=== PATIENT | male | born 1945 | race Caucasian/White ===

== ENCOUNTER 2021-11-23 20:54 | Inpatient (IN) | payer MEDICARE, MEDICAID ==
[~2021-11-23] VITALS: Ht 175.3 cm; Wt 119.0 kg
[~2021-11-23 20:54] MED LIST: ALPR-13 PO; ASPI-611 PO; CARV12.5 PO; DOL10T PO; MONT10TA21 PO; ROSU20TA2 PO; TAMS0.4C32 PO; VENL75CA55 PO; ZES10T PO
[2021-11-23] MEDS ORDERED: temazepam 15mg capsule PO PRN (21:00)
[2021-11-23] MEDS ORDERED: dextrose 5%-normal saline 1,000 ML IV ONE (21:05)
[2021-11-23 21:40] LABS: BASOPHILS % (AUTO) 0.1 % (0-1); EOSINOPHILS % (AUTO) 0 % (0-6); HEMATOCRIT 41.2 % (42.0-52.0); HEMOGLOBIN 13.7 g/dl (14.0-17.9); LYMPHOCYTES # (AUTO) 0.6 X10'3 (1.1-4.8); MEAN CORPUSCULAR HEMOGLOBIN 30.7 PG (27.0-31.0); MEAN CORPUSCULAR HGB CONC 33.2 g/dL (33.0-36.5); MEAN CORPUSCULAR VOLUME 92.6 FL (78-98); MEAN PLATELET VOLUME 9.8 FL (7.4-10.4); MONOCYTES # (AUTO) 0.3 X10'3 (0-0.9); MONOCYTES % (AUTO) 3.5 % (2-12); NEUTROPHILS # (AUTO) 8.4 X10'3 (1.8-7.7); NEUTROPHILS % (AUTO) 90.4 % (42-75); PLATELET COUNT 119 X10'3 (140-440); RED BLOOD COUNT 4.45 X10'6 (4.70-6.10); RED CELL DISTRIBUTION WIDTH 17.8 % (11.5-14.5); WHITE BLOOD COUNT 9.3 X10'3 (4.5-11.0)
[2021-11-23 22:06] LABS: APTT 43 SECONDS (22-32); D-DIMER 3.21 MG/L FEU (0-0.50)
[2021-11-23] MEDS ORDERED: phytonadione inj. 10 MG in normal saline 100ml IV soln 100 ML IV ONE (22:50)
[2021-11-23 23:19] LABS: CLARITY,URINE SLIGHTLY CLOUDY (Clear); COLOR,URINE YELLOW (Yellow); GLUCOSE, URINE NEGATIVE (Neg); KETONES,URINE TRACE mg/dl (Neg); LEUKOCYTE ESTERASE ,URINE NEGATIVE (Neg); NITRITES, URINE NEGATIVE (Neg); OCCULT BLOOD,URINE LARGE (Neg); PH,URINE 5.5 (4.8-8.0); PROTEIN,URINE 30 mg/dl (Neg)
[2021-11-23] MEDS ORDERED: CARV-50 PO (23:19)
[2021-11-23] MEDS ORDERED: AMLO5TAB16 PO (23:19)
[2021-11-23] MEDS ORDERED: POTA10TA PO (23:19)
[2021-11-23] MEDS ORDERED: FURO20TA4 PO (23:19)
[2021-11-23] MEDS ORDERED: MIRT-87 PO (23:19)
[2021-11-23] MEDS ORDERED: SIMV-42 PO (23:19)
[2021-11-23] MEDS ORDERED: FLUT1AER INH (23:19)
[2021-11-23] MEDS ORDERED: OXYB10TA30 PO (23:19)
[2021-11-23 23:20] LABS: UA COLLECTION TYPE CLN CATCH MIDSTREAM
[2021-11-23 23:27] LABS: AMORPHOUS URATES 2+; BACTERIA,URINE FEW /HPF (Neg); SQUAMOUS EPITHELIAL CELL,UR FEW /LPF (FEW); WBC,URINE 0-4 /HPF (0-4)
[2021-11-23] MEDS: normal saline 1000ml 1,000 ML IV SCH (23:45)
[2021-11-23] MEDS ORDERED: magnesium hydroxide 30ml (MOM) UD suspension PO PRN (23:45)
[2021-11-23] MEDS ORDERED: ondansetron/PF 4mg/2ml inj IV PRN (23:45)
[2021-11-23] MEDS ORDERED: bisacodyl 10mg suppository rectal RC PRN (23:45)
[2021-11-23] MEDS ORDERED: acetaminophen 650mg rectal suppository RC PRN (23:45)
[2021-11-23] MEDS ORDERED: morphine 2 MG/ML inj. syringe IV PRN (23:45)
[2021-11-23] MEDS ORDERED: diphenhydrAMINE 50 mg/ml inj IV PRN (23:45)
[2021-11-23] MEDS ORDERED: mag hydrox/Alum hydrox/simeth 30ml oral suspension PO PRN (23:45)
[2021-11-23] MEDS ORDERED: acetaminophen 325mg tablet PO PRN ×2 (23:45)
[2021-11-23] MEDS ORDERED: naloxone 0.4 mg/ml inj IV PRN (23:45)
[2021-11-23] MEDS ORDERED: ondansetron 4mg rapidly disintigrating tab PO PRN (23:45)
[2021-11-23] MEDS ORDERED: diphenhydrAMINE 25mg capsule PO PRN (23:45)
[2021-11-24] VITALS (13 sets, daily range): BP systolic 87–107; BP diastolic 43–65
[2021-11-24 00:14] LABS: ALBUMIN 2.2 G/DL (3.4-5.0); ALKALINE PHOSPHATASE 251 IU/L (46-116); ANION GAP 16 (8-16); BILIRUBIN,TOTAL 4.9 MG/DL (0.1-1.0); BLOOD UREA NITROGEN 65 MG/DL (7-18); CALCIUM 8.3 MG/DL (8.5-10.1); CHLORIDE 110 MMOL/L (99-107); CKMB RELATIVE INDEX 0.8 RATIO (0-2.5); CREATINE KINASE 773 U/L (39-308); GLUCOSE 91 MG/DL (70-104); LIPASE < 50 U/L (73-393); MAGNESIUM 2.6 MG/DL (1.5-2.4); POTASSIUM 3.3 MMOL/L (3.5-5.1); SODIUM 148 MMOL/L (135-145); TOTAL CARBON DIOXIDE 22.3 MMOL/L (24-32); eGFR 31 ML/MIN
[2021-11-24 00:16] LABS: ALANINE AMINOTRANSFERASE 1064 U/L (12-78); ALBUMIN/GLOBULIN RATIO 0.6 (1.1-1.5); ASPARTATE AMINO TRANSFERASE 1255 U/L (10-37); TOTAL PROTEIN 5.7 G/DL (6.4-8.2)
[2021-11-24 00:17] LABS: ETHANOL < 0.010 GM/DL (0.0-0.010)
[2021-11-24] MEDS ORDERED: magnesium 4gm in 100ml NS 100 ML IV PRN ×2 (02:10→11:30)
[2021-11-24] MEDS ORDERED: magnesium Cl slow-release 64mg tablet PO PRN (02:10)
[2021-11-24] MEDS ORDERED: potassium CL 10mEq/100ml bag 100 ML IV PRN ×2 (02:10→11:30)
[2021-11-24] MEDS ORDERED: potassium Cl 20 mEq SR tablet PO PRN ×3 (02:10→11:30)
[2021-11-24] MEDS ORDERED: albumin (Human) 5% 250ml 250 ML IV ONE (02:20)
[2021-11-24] MEDS: normal saline 1000ml 1,000 ML IV SCH ×2 (02:47→13:52)
[2021-11-24] MEDS ORDERED: albuterol 2.5 MG/3 ML nebule NEB SCH (03:00)
[2021-11-24] MEDS: ipratropium/albuterol 3ml nebule NEB SCH ×6 (03:41→23:14)
[2021-11-24] MEDS ORDERED: tuberculin, purif. prot. deriv. 5 units/0.1ml ID ONE (05:00)
[2021-11-24 06:19] LABS: URINE AMPHETAMINE SCREEN NEGATIVE (Neg); URINE BARBITUATE SCREEN NEGATIVE (Neg); URINE BENZODIAZEPINES SCREEN NEGATIVE (Neg); URINE CANNABINOID SCREEN POSITIVE (Neg); URINE COCAINE SCREEN NEGATIVE (Neg); URINE METHADONE SCREEN NEGATIVE (Neg); URINE OPIATE SCREEN NEGATIVE (Neg); URINE PHENCYCLIDINE SCREEN NEGATIVE (Neg)
[2021-11-24] MEDS ORDERED: LIDOcaine 2% 10ml TOPICAL JELLY (Urojet) TP ONE (06:20)
[2021-11-24] MEDS ORDERED: DOPamine 400mg/D5W 250ml 250 ML IV SCH (06:20)
--- NOTE | 2021-11-24 06:29 | NUR ---
Call daughter when pt. gets placed in room
[2021-11-24 06:31] LABS: HIV ANTIBODY 1&2 RAPID NON-REACTIVE (Neg)
--- NOTE | 2021-11-24 07:03 | NUR ---
spoke with residential housekeeper Neelima who confirmed that dopamine can be run temporarily on a PIV but would eventually need a central line which pt does not have. pt informed of this information and states he "would like to think about it" regarding getting a central line. edmd child made aware of possible need for central line and is agreeable if pt agrees. pt bp currently 84/36. pt is aware of his low blood pressure and aware that decision for central line placement is necessary as soon as possible.
--- NOTE | 2021-11-24 07:27 | NUR ---
pt is agreeable to central line placement. pt is not aware of his current ct scan results and believes he has no liver problems or lung problems. per manufacturing supervisor 2nd shift rn, pt was not told of his current results by the ed doctor or admission dr and pt would like to know his results. ct has concerning results and hospitalist joseline paged to inform pt of the current results so pt can make informed decision regarding his care.
[2021-11-24] MEDS: budesonide 0.5mg/2ml UD nebule IH SCH ×2 (07:32→19:04)
[2021-11-24] MEDS ORDERED: levoFLOXACIN-Levaquin 750MG/D5 150 ML IV SCH (08:00)
[2021-11-24] MEDS ORDERED: dextrose 5%-water 1,000 ML IV SCH (08:15)
[2021-11-24 09:20] LABS: BASOPHILS % (AUTO) 0.1 % (0-1); EOSINOPHILS % (AUTO) 0 % (0-6); HEMATOCRIT 39.1 % (42.0-52.0); LYMPHOCYTES # (AUTO) 0.5 X10'3 (1.1-4.8); LYMPHOCYTES % (AUTO) 4.2 % (21-51); MEAN CORPUSCULAR HEMOGLOBIN 30.7 PG (27.0-31.0); MEAN CORPUSCULAR HGB CONC 33.3 g/dL (33.0-36.5); MEAN CORPUSCULAR VOLUME 92.1 FL (78-98); MEAN PLATELET VOLUME 9.3 FL (7.4-10.4); MONOCYTES # (AUTO) 0.3 X10'3 (0-0.9); MONOCYTES % (AUTO) 2.4 % (2-12); NEUTROPHILS % (AUTO) 93.3 % (42-75); PLATELET COUNT 123 X10'3 (140-440); RED BLOOD COUNT 4.24 X10'6 (4.70-6.10); RED CELL DISTRIBUTION WIDTH 18.1 % (11.5-14.5); WHITE BLOOD COUNT 11.8 X10'3 (4.5-11.0)
[2021-11-24 09:36] LABS: OCCULT BLOOD STOOL POSITIVE (Neg)
[2021-11-24 09:36] LABS: ALANINE AMINOTRANSFERASE 909 U/L (12-78); ALBUMIN 2.2 G/DL (3.4-5.0); ALKALINE PHOSPHATASE 240 IU/L (46-116); ANION GAP 18 (8-16); ASPARTATE AMINO TRANSFERASE 818 U/L (10-37); BILIRUBIN,TOTAL 4.6 MG/DL (0.1-1.0); BLOOD UREA NITROGEN 71 MG/DL (7-18); CALCIUM 8.4 MG/DL (8.5-10.1); CHLORIDE 111 MMOL/L (99-107); CREATININE 2.15 MG/DL (0.60-1.10); GLUCOSE 87 MG/DL (70-104); POTASSIUM 3.7 MMOL/L (3.5-5.1); SODIUM 149 MMOL/L (135-145); TOTAL CARBON DIOXIDE 20.1 MMOL/L (24-32); eGFR 30 ML/MIN
[2021-11-24 09:38] LABS: ALBUMIN/GLOBULIN RATIO 0.6 (1.1-1.5); TOTAL PROTEIN 5.8 G/DL (6.4-8.2)
[2021-11-24 09:45] LABS: CREATINE KINASE 523 U/L (39-308); HDL CHOLESTEROL 17 MG/DL (35-60); LDL CHOLESTEROL 89 MG/DL (50-100); MAGNESIUM 2.7 MG/DL (1.5-2.4)
[2021-11-24 09:47] LABS: CHOLESTEROL 153 MG/DL (0-200); PHOSPHORUS 4.5 MG/DL (2.3-4.5); TRIGLYCERIDES 180 MG/DL (20-135)
[2021-11-24] MEDS: K and/or MAG REPLACEMENT MC SCH ×2 (09:48→20:00)
[2021-11-24] MEDS: carVEDilol 12.5mg tablet PO SCH ×2 (09:50→18:42)
[2021-11-24 10:11] LABS: HEMOGLOBIN A1C 6.2 % (4.5-6.2)
[2021-11-24] MEDS: docusate sod 100mg capsule PO SCH ×2 (10:16→21:19)
[2021-11-24] MEDS: pantoprazole 40mg Tablet.DR PO SCH (10:16)
[2021-11-24] MEDS: methylPREDNISolone sod succ 125mg/2ml vial IV SCH ×2 (10:16→21:18)
[2021-11-24] MEDS: oxybutynin 5mg tablet PO SCH ×2 (10:21→21:19)
--- NOTE | 2021-11-24 10:59 | NUR ---
Patient transferred to ICU at this time. Report given to JACKY Oliveira.
[2021-11-24] MEDS ORDERED: albumin (human) 25% 100 ML IV solution IV ONE (11:05)
[2021-11-24] MEDS ORDERED: potassium Cl 20mEq/100mL bag 100 ML IV PRN (11:30)
[2021-11-24] MEDS ORDERED: magnesium 2GM in 50ml NS 50 ML IV PRN (11:30)
[2021-11-24] MEDS ORDERED: potassium Cl 20 mEq/100mL bag IV ONE (11:40)
[2021-11-24] MEDS ORDERED: amiodarone 150mg/dext, iso-os 100 ML IV ONE (12:50)
[2021-11-24] MEDS: amiodarone/D5 360MG/200ML BAG 200 ML IV SCH ×2 (13:07→19:48)
[2021-11-24] MEDS: DOPamine 400mg/D5W 250ml 250 ML IV SCH ×2 (15:02→21:20)
--- NOTE | 2021-11-24 15:38 | NUR ---
Patients daughter called for an update Zully Granados, updated her on her fathers current condition. She informed me that she arrived in town yesterday an that she was currently at the patients house cleaning it up, I reviewed the patients past medical history with her, she informed that he has a history of strokes and is quite forgetful and often times a little confused when he first wakes up. She stated he has had " mini strokes" in the past. Her contact number is [phone]. Patient states that his daughter is best to contact for past medical history as he forgets easily
[2021-11-24 17:04] LABS: BASOPHILS % (AUTO) 0.1 % (0-1); EOSINOPHILS % (AUTO) 0.1 % (0-6); HEMATOCRIT 36.8 % (42.0-52.0); LYMPHOCYTES # (AUTO) 0.4 X10'3 (1.1-4.8); LYMPHOCYTES % (AUTO) 3.1 % (21-51); MEAN CORPUSCULAR HEMOGLOBIN 29.7 PG (27.0-31.0); MEAN CORPUSCULAR HGB CONC 32.6 g/dL (33.0-36.5); MEAN CORPUSCULAR VOLUME 91.2 FL (78-98); MEAN PLATELET VOLUME 9.5 FL (7.4-10.4); MONOCYTES # (AUTO) 0.2 X10'3 (0-0.9); MONOCYTES % (AUTO) 1.7 % (2-12); PLATELET COUNT 120 X10'3 (140-440); RED BLOOD COUNT 4.04 X10'6 (4.70-6.10); RED CELL DISTRIBUTION WIDTH 17.9 % (11.5-14.5); WHITE BLOOD COUNT 11.5 X10'3 (4.5-11.0)
[2021-11-24 17:16] LABS: ALANINE AMINOTRANSFERASE 770 U/L (12-78); ALBUMIN 2.4 G/DL (3.4-5.0); ALKALINE PHOSPHATASE 213 IU/L (46-116); ANION GAP 17 (8-16); ASPARTATE AMINO TRANSFERASE 581 U/L (10-37); BILIRUBIN,TOTAL 4.2 MG/DL (0.1-1.0); BLOOD UREA NITROGEN 69 MG/DL (7-18); BUN/CREATININE RATIO 34.5 (5.4-32.0); CALCIUM 8.3 MG/DL (8.5-10.1); CHLORIDE 111 MMOL/L (99-107); GLUCOSE 122 MG/DL (70-104); MAGNESIUM 3.1 MG/DL (1.5-2.4); POTASSIUM 4.1 MMOL/L (3.5-5.1); SODIUM 148 MMOL/L (135-145); TOTAL CARBON DIOXIDE 20.2 MMOL/L (24-32); eGFR 33 ML/MIN
[2021-11-24 17:19] LABS: ALBUMIN/GLOBULIN RATIO 0.7 (1.1-1.5); PHOSPHORUS 4.3 MG/DL (2.3-4.5); TOTAL PROTEIN 5.7 G/DL (6.4-8.2)
--- NOTE | 2021-11-24 17:23 | NUR ---
Daughter by to see patient, i was in my other patients room, daughter brought by patients wallet and home meds, meds will be sent down to pharmacy and wallet will be sent down to the safe Addendum: 11/24/21 at 1724 by Roxanne Grier RN Charge nurse in room with patient as i was in another room, she updated the daughter and took possession of meds and wallet
[2021-11-24] MEDS ORDERED: phytonadione inj. 10 MG in normal saline 100ml IV soln 100 ML IV ONE (17:40)
--- NOTE | 2021-11-24 17:55 | NUR ---
critical values pt 43.0 inr 4.6 and positive blood cultures drawn on 11/23/21 from r forearm resulted gram neg rods, Dr. Jeffery informed.
--- NOTE | 2021-11-24 18:30 | NUR ---
Patient in room ICU 2039. I have received report from JACKY Oliveira and had the opportunity to ask questions and assume patient care.
--- NOTE | 2021-11-24 18:32 | NUR ---
Problems reprioritized. Patient report given, questions answered & plan of care reviewed with Devi RICO.
[2021-11-24] MEDS: mirtazapine 15mg tablet PO SCH (21:19)
[2021-11-24] MEDS: atorvastatin 10mg tablet PO SCH (21:19)
[2021-11-25] VITALS (23 sets, daily range): BP systolic 87–118; BP diastolic 46–60
[2021-11-25] MEDS: amiodarone/D5 360MG/200ML BAG 200 ML IV SCH ×3 (01:53→20:37)
[2021-11-25] MEDS: ipratropium/albuterol 3ml nebule NEB SCH ×6 (03:10→23:32)
[2021-11-25 03:13] LABS: BASOPHILS % (AUTO) 0.2 % (0-1); EOSINOPHILS % (AUTO) 0 % (0-6); HEMATOCRIT 36.8 % (42.0-52.0); LYMPHOCYTES # (AUTO) 0.3 X10'3 (1.1-4.8); LYMPHOCYTES % (AUTO) 2.3 % (21-51); MEAN CORPUSCULAR HEMOGLOBIN 29.9 PG (27.0-31.0); MEAN CORPUSCULAR HGB CONC 32.6 g/dL (33.0-36.5); MEAN CORPUSCULAR VOLUME 91.6 FL (78-98); MEAN PLATELET VOLUME 9.4 FL (7.4-10.4); MONOCYTES # (AUTO) 0.3 X10'3 (0-0.9); MONOCYTES % (AUTO) 2.3 % (2-12); NEUTROPHILS # (AUTO) 11.7 X10'3 (1.8-7.7); NEUTROPHILS % (AUTO) 95.2 % (42-75); PLATELET COUNT 123 X10'3 (140-440); RED BLOOD COUNT 4.01 X10'6 (4.70-6.10); RED CELL DISTRIBUTION WIDTH 18.3 % (11.5-14.5); WHITE BLOOD COUNT 12.3 X10'3 (4.5-11.0)
[2021-11-25 03:27] LABS: APTT 36 SECONDS (22-32)
[2021-11-25 03:34] LABS: ALANINE AMINOTRANSFERASE 701 U/L (12-78); ALBUMIN 2.3 G/DL (3.4-5.0); ALKALINE PHOSPHATASE 220 IU/L (46-116); ANION GAP 10 (8-16); ASPARTATE AMINO TRANSFERASE 396 U/L (10-37); BILIRUBIN,TOTAL 4.2 MG/DL (0.1-1.0); BLOOD UREA NITROGEN 72 MG/DL (7-18); BUN/CREATININE RATIO 34.3 (5.4-32.0); CALCIUM 8.2 MG/DL (8.5-10.1); CHLORIDE 115 MMOL/L (99-107); GLUCOSE 155 MG/DL (70-104); POTASSIUM 3.9 MMOL/L (3.5-5.1); SODIUM 148 MMOL/L (135-145); eGFR 31 ML/MIN
[2021-11-25 03:51] LABS: ALBUMIN/GLOBULIN RATIO 0.7 (1.1-1.5); TOTAL PROTEIN 5.7 G/DL (6.4-8.2)
[2021-11-25] MEDS: DOPamine 400mg/D5W 250ml 250 ML IV SCH (04:29)
[2021-11-25] MEDS: NORepinephrine 8mg/ 250ml NS 250 ML IV SCH ×2 (05:22→16:07)
[2021-11-25 05:24] LABS: ANISOCYTOSIS 2+; PLATELET ESTIMATE DECREASED; TOTAL CELLS COUNTED 100
[2021-11-25 05:25] LABS: POLYCHROMASIA FEW
[2021-11-25] MEDS: HYDROcodone/acetaminophen 5mg/325mg tablet PO PRN ×2 (06:01→17:01)
--- NOTE | 2021-11-25 06:35 | NUR ---
Problems reprioritized. Patient report given, questions answered & plan of care reviewed with JACKY Samuels.
[2021-11-25] MEDS: methylPREDNISolone sod succ 125mg/2ml vial IV SCH ×2 (07:28→20:37)
[2021-11-25] MEDS: heparin, porcine 5000 units/ml vial SQ SCH ×2 (07:29→20:37)
[2021-11-25] MEDS: budesonide 0.5mg/2ml UD nebule IH SCH ×2 (07:33→19:26)
[2021-11-25] MEDS: carVEDilol 12.5mg tablet PO SCH ×2 (08:00→20:38)
[2021-11-25] MEDS: K and/or MAG REPLACEMENT MC SCH ×2 (08:00→20:38)
--- NOTE | 2021-11-25 08:00 | NUR ---
Patient in room ICU 2039. I have received report from Devi RICO and had the opportunity to ask questions and assume patient care. MD to see pt. Updated on current condition. He will add orders for pt. QT interval reported. Amiodarone decreased to noted rate after discussion with CN and MD.
--- NOTE | 2021-11-25 08:30 | NUR ---
MD Visit Critical care MD notified that hospitalist had ordered NM scan for PE this AM. He clarified that it was not needed.
[2021-11-25] MEDS: docusate sod 100mg capsule PO SCH ×2 (09:14→20:38)
[2021-11-25] MEDS: CefTRIAXone 2gm/NS 100ml IVPB 100 ML IV SCH (09:14)
[2021-11-25] MEDS: pantoprazole 40mg Tablet.DR PO SCH (09:14)
[2021-11-25] MEDS: oxybutynin 5mg tablet PO SCH ×2 (09:16→20:37)
[2021-11-25] MEDS: normal saline 1000ml 1,000 ML IV SCH (09:45)
--- NOTE | 2021-11-25 11:07 | NUR ---
Patient in room ICU 2039. I have received report from Devi RICO and had the opportunity to ask questions and assume patient care. MD to see pt. Updated on current condition. He will add orders for pt. QT interval reported. Amiodarone decreased to noted rate after discussion with CN and MD. Daughter here, aware of O2 increases. Stayed for rounds and concern for trach vocalized. explained FiO2 needs to be less than 50% and peep at 8 or less, so trach and peg are on hold. Addendum: 11/25/21 at 1112 by Arvind Pereira RN Wrong patient Addendum: 11/25/21 at 1215 by Arvind Pereira RN Wrong patient note
[2021-11-25] MEDS ORDERED: furosemide 40mg/4ml inj IV ONE (11:50)
--- NOTE | 2021-11-25 12:16 | NUR ---
Family Pts daughter here from [place]. Asked about discharge process. Encouraged her to be here about 0930 for rounds and she can discuss the D/C plan as pt lives in [place] with limited resources. Pt UO abebe. notified. Margaret ordered and given
[2021-11-25] MEDS: atorvastatin 10mg tablet PO SCH (20:38)
[2021-11-25] MEDS: mirtazapine 15mg tablet PO SCH (20:38)
--- NOTE | 2021-11-25 21:14 | NUR ---
Pt having a difficult time swallowing, gross wet cough post swallow. Called Dr Weinberg, Keeping NPO and ordering another swallow eval.
[2021-11-26] VITALS (25 sets, daily range): BP systolic 89–112; BP diastolic 42–61
[2021-11-26 02:32] LABS: BASOPHILS % (AUTO) 0.1 % (0-1); EOSINOPHILS % (AUTO) 0 % (0-6); HEMOGLOBIN 11.9 g/dl (14.0-17.9); LYMPHOCYTES # (AUTO) 0.5 X10'3 (1.1-4.8); LYMPHOCYTES % (AUTO) 4.2 % (21-51); MEAN CORPUSCULAR HEMOGLOBIN 30.1 PG (27.0-31.0); MEAN CORPUSCULAR HGB CONC 33.1 g/dL (33.0-36.5); MEAN CORPUSCULAR VOLUME 91.1 FL (78-98); MEAN PLATELET VOLUME 8.9 FL (7.4-10.4); MONOCYTES # (AUTO) 0.3 X10'3 (0-0.9); MONOCYTES % (AUTO) 2.5 % (2-12); NEUTROPHILS # (AUTO) 11.1 X10'3 (1.8-7.7); NEUTROPHILS % (AUTO) 93.2 % (42-75); PLATELET COUNT 123 X10'3 (140-440); RED BLOOD COUNT 3.96 X10'6 (4.70-6.10); RED CELL DISTRIBUTION WIDTH 18.1 % (11.5-14.5); WHITE BLOOD COUNT 11.9 X10'3 (4.5-11.0)
[2021-11-26 02:44] LABS: APTT 32 SECONDS (22-32)
[2021-11-26 02:46] LABS: ALANINE AMINOTRANSFERASE 530 U/L (12-78); ALKALINE PHOSPHATASE 243 IU/L (46-116); ANION GAP 16 (8-16); ASPARTATE AMINO TRANSFERASE 228 U/L (10-37); BILIRUBIN,TOTAL 4.3 MG/DL (0.1-1.0); BLOOD UREA NITROGEN 90 MG/DL (7-18); BUN/CREATININE RATIO 32.8 (5.4-32.0); CALCIUM 8.1 MG/DL (8.5-10.1); CHLORIDE 113 MMOL/L (99-107); CREATININE 2.74 MG/DL (0.60-1.10); GLUCOSE 132 MG/DL (70-104); MAGNESIUM 2.9 MG/DL (1.5-2.4); POTASSIUM 4.5 MMOL/L (3.5-5.1); SODIUM 149 MMOL/L (135-145); eGFR 23 ML/MIN
[2021-11-26] MEDS: ipratropium/albuterol 3ml nebule NEB SCH ×6 (03:02→23:16)
[2021-11-26 03:17] LABS: ALBUMIN/GLOBULIN RATIO 0.6 (1.1-1.5); TOTAL PROTEIN 5.5 G/DL (6.4-8.2)
[2021-11-26] MEDS: NORepinephrine 8mg/ 250ml NS 250 ML IV SCH ×5 (05:23→23:51)
--- NOTE | 2021-11-26 05:33 | NUR ---
This is a 76 year old male, admitted 11/24/2021, day 2 of hospitalization, full code, no restraints, no isolation, NDA. Pt presents with history of multiple medical problems including chronic hypoxia respiratory failure secondary secondary to COPD and heavy smoking on home oxygen, history of coronary artery disease status post CABG, systolic CHF, chronic dyslipidemia, history of marijuana abuse, chronic kidney disease, hypertension, chronic hepatitis, presented today to emergency department chief complaint generalized weakness, associated with falls ground-level; in addition patient presents to the ER via EMS following a mechanical fall which took place last night. Patient states that he had to lie on the floor all evening and a friend came over in the morning to find him on the bathroom floor. Patient has a skin tear to the right elbow as a result of this fall. Medics were contacted at that time but patient refused transport. Patient noticed throughout the day that he felt increasingly more weak and was unable to ambulate. Patient was moved to his bed where he defecated and urinated on himself. Medics were contacted again and he was transported to the ER at this time. Medics report that the patient had a systolic blood pressure of "96" but dropped to "80" and they were able to get it back up to 100". Patient had a blood glucose of 68. Patient is typically on 2 L of oxygen via nasal cannula 09/03 at home. Patient's signals analyst is his son but his son is currently in [place] and is unable to take care of him. According to ER staff patient had at home Coumadin which might be a possibility of overdose with Coumadin;Patient denies chest pain, fever, chills, and shortness of breath. Patient denies any alcohol or drug use.Patient denies any other associated symptoms at this time. Patient denies any other alleviating or exacerbating factors. No additional complaints or concerns. Currently, afebrile. AA confused at times, follows all commands, cooperative. Notable generalized weakness. AF/SR/BBB HR 70, Rate controlled with Amiodarone IV .5 mg. EF 55-60% BP 98/60, supported with Levophed @ .14mcgs., weak pulses. IVF infusing via RIJ TLC, All port f/p good blood return. dressing CDI. +3+4 BLLE Pitting edema. RR 18 PO 88-91% 4L NC, coarse breath sounds, Coarse upper airway. equal symmetrical non labored. Hypoactive bowel sounds, rounded abdomen. Maintaining NPO status due to difficulty swallowing with raspy/cough after swallowing. Reordered swallow eval. Pt may need barium swallow study. Carter draining dark jairo urine, total UOP 500 ml's. Skin issues, right hip with abrasion dressed by wound care nurse, dressing Xeroform and dressing. Other abrasions on legs arms and back. Pt resting well, remains safe and comfortable.
[2021-11-26] MEDS: normal saline 1000ml 1,000 ML IV SCH (05:45)
--- NOTE | 2021-11-26 07:29 | NUR ---
Patient in room ICU 2039. I have received report from Shant RICO and had the opportunity to ask questions and assume patient care. MD to see briefly. Updated on swallow issues. Will hold PO meds pending NG tube for possible aspiration. Pt aware of swallow issues as well.
[2021-11-26] MEDS: pantoprazole 40mg Tablet.DR PO SCH (07:30)
[2021-11-26] MEDS: budesonide 0.5mg/2ml UD nebule IH SCH ×2 (07:39→19:38)
[2021-11-26] MEDS: CefTRIAXone 2gm/NS 100ml IVPB 100 ML IV SCH (07:40)
[2021-11-26] MEDS: methylPREDNISolone sod succ 125mg/2ml vial IV SCH ×2 (07:40→20:22)
[2021-11-26] MEDS: heparin, porcine 5000 units/ml vial SQ SCH ×2 (07:41→20:23)
[2021-11-26] MEDS: carVEDilol 12.5mg tablet PO SCH (07:51)
[2021-11-26] MEDS: docusate sod 100mg capsule PO SCH (08:00)
[2021-11-26] MEDS: oxybutynin 5mg tablet PO SCH (08:00)
[2021-11-26] MEDS: amiodarone/D5 360MG/200ML BAG 200 ML IV SCH ×2 (09:36→20:44)
[2021-11-26] MEDS ORDERED: furosemide 40mg/4ml inj IV ONE ×2 (11:10→14:15)
--- NOTE | 2021-11-26 11:56 | NUR ---
TF Consult: Pt admit DX sepsis, liver failure, acute on chronic renal failure, and generalized weakness s/p fall per EMR. Pt currently NPO per [facility] recs s/p NG w/ TF to start today per hospice music therapist. LBM 11/24 receiving routine colace per EMR. TF recs below; will monitor for tolerance and adjustment needs. Rec: 1. Continuous TF per MD using Vital AF at 75ml/hr goal; to provide 1800ml volume/day, 2160 kcals, 1460ml water, and 135g protein. 2. additional water flush 200ml Q4H; monitor serum Na for adjustment needs 3. PALB Q /; daily wts 4. routine bowel care 5. advance diet per [facility]/MD recs to regular; consider heart healthy restriction if consistently adequate PO Addendum: 11/26/21 at [address] Amended: Links added.
[2021-11-26 12:30] LABS: HBSAG SCREEN Negative (Negative); HEP A AB, IGM Negative (Negative); HEP B CORE AB, TOT Negative (Negative); HEPATITIS C ANTIBODY 2.7 s/co ratio (0.0-0.9)
[2021-11-26] MEDS: cefepime 2g/NS 100ml ADVANTAGE 100 ML IV SCH ×2 (14:52→22:11)
[2021-11-26] MEDS ORDERED: atorvastatin 10mg tablet CORPAK SCH (14:56)
[2021-11-26] MEDS ORDERED: mag hydrox/Alum hydrox/simeth 30ml oral suspension CORPAK PRN (14:58)
--- NOTE | 2021-11-26 14:58 | NUR ---
Resp Update I asked Shai if he wanted to be intubated if needed. He was adiment that he did not want to be intubated. I let MD know. He asked for high flow O2 for him as he didn't think the pt would tolerate BiPAP. RT notified.
[2021-11-26] MEDS ORDERED: mirtazapine 15mg tablet CORPAK SCH (14:59)
[2021-11-26] MEDS ORDERED: magnesium hydroxide 30ml (MOM) UD suspension CORPAK PRN (14:59)
[2021-11-26] MEDS ORDERED: acetaminophen 325mg/10.15ml oral unit dose solution CORPAK PRN (15:00)
[2021-11-26] MEDS ORDERED: diphenhydrAMINE 25 MG/10 ML UD oral solution CORPAK PRN (15:00)
[2021-11-26] MEDS ORDERED: HYDROcodone/acetaminophen 7.5MG/325MG per 15ml UD CUP CORPAK PRN (15:00)
[2021-11-26] MEDS ORDERED: potassium Cl 20 mEq SR tablet CORPAK PRN (15:03)
[2021-11-26] MEDS ORDERED: temazepam 15mg capsule CORPAK PRN (15:03)
[2021-11-26] MEDS ORDERED: ondansetron 4mg/5ml UD cup CORPAK PRN (15:05)
[2021-11-26] MEDS ORDERED: MIDAZolam 1 MG/ML 5ML VIAL ONE (16:10)
[2021-11-26] MEDS ORDERED: fentaNYL/PF 50MCG/1 ML 2ML syringe ONE (16:10)
[2021-11-26] MEDS ORDERED: LIDOcaine Viscous 15ml cup ONE (16:10)
[2021-11-26] MEDS ORDERED: fluconazole-Diflucan 200mg/NS 100 ML IV ONE (17:05)
--- NOTE | 2021-11-26 18:34 | NUR ---
Shift End Note: GI came up after 3 NG placement attempts failed. Pt desated during procedure but tube was placed and cleared for use by GI MD. Additional orders noted and pt back on CPAP at 100%. O2 sats improved rapidly. Attempted to clarify with daughter, Zully, about pts desire to not be intubated. Recommended that she come back after 7:30 to clarify pts understanding. He was clear with me earlier that he did not wish go be intubated. Reported to CN also Problems reprioritized. Patient report given, questions answered & plan of care reviewed with Stevie RICO. Reported to [facility] CN as well as RN about Zully coming back in to discuss pt code status.
[2021-11-26] MEDS: carVEDilol 12.5mg tablet CORPAK SCH (18:53)
[2021-11-26] MEDS: K and/or MAG REPLACEMENT MC SCH (18:54)
[2021-11-26] MEDS: docusate sodium 100mg/10ml UD cup CORPAK SCH (20:20)
[2021-11-26] MEDS: oxybutynin 5mg tablet OGT SCH (20:21)
[2021-11-26] MEDS: pantoprazole 40MG/NS 100ML BAG 100 ML IV SCH (20:22)
[2021-11-26] MEDS: acetaminophen 325mg/10.15ml oral unit dose solution CORPAK PRN (20:49)
[2021-11-26 21:41] LABS: CLARITY,URINE CLOUDY (Clear); GLUCOSE, URINE NEGATIVE (Neg); KETONES,URINE NEGATIVE (Neg); LEUKOCYTE ESTERASE ,URINE NEGATIVE (Neg); NITRITES, URINE NEGATIVE (Neg); OCCULT BLOOD,URINE SMALL (Neg); PH,URINE 5.5 (4.8-8.0); PROTEIN,URINE TRACE mg/dl (Neg)
[2021-11-26 21:43] LABS: COLOR,URINE DARK YELLOW (Yellow); UA COLLECTION TYPE NON-SPECIFIED
[2021-11-26 21:46] LABS: SODIUM,URINE RANDOM < 15 MEQ/L
[2021-11-26 22:09] LABS: BACTERIA,URINE FEW /HPF (Neg); MUCUS STRANDS MODERATE /LPF (Neg); SQUAMOUS EPITHELIAL CELL,UR NONE SEEN /LPF (FEW); WBC,URINE 0-4 /HPF (0-4)
[2021-11-26 22:10] LABS: AMORPHOUS URATES 4+; RENAL CELLS, URINE FEW /HPF; TRANSITIONAL EPI CELLS,URINE MODERATE /HPF
--- NOTE | 2021-11-26 22:50 | NUR ---
Patient in room ICU 2039. I have received report from JACKY Samuels and had the opportunity to ask questions and assume patient care.
[2021-11-27] VITALS (18 sets, daily range): BP systolic 71–113; BP diastolic 35–52
[2021-11-27] MEDS ORDERED: NORepinephrine inj. 32 MG in normal saline 250ml IV soln 218 ML IV SCH (00:45)
[2021-11-27 02:51] LABS: BASOPHILS % (AUTO) 0.1 % (0-1); EOSINOPHILS % (AUTO) 0 % (0-6); HEMATOCRIT 37.5 % (42.0-52.0); LYMPHOCYTES # (AUTO) 0.5 X10'3 (1.1-4.8); LYMPHOCYTES % (AUTO) 4.8 % (21-51); MEAN CORPUSCULAR HEMOGLOBIN 30.1 PG (27.0-31.0); MEAN CORPUSCULAR HGB CONC 31.9 g/dL (33.0-36.5); MEAN CORPUSCULAR VOLUME 94.5 FL (78-98); MEAN PLATELET VOLUME 9.3 FL (7.4-10.4); MONOCYTES # (AUTO) 0.3 X10'3 (0-0.9); MONOCYTES % (AUTO) 2.6 % (2-12); NEUTROPHILS # (AUTO) 9.8 X10'3 (1.8-7.7); NEUTROPHILS % (AUTO) 92.5 % (42-75); PLATELET COUNT 129 X10'3 (140-440); RED BLOOD COUNT 3.97 X10'6 (4.70-6.10); RED CELL DISTRIBUTION WIDTH 19.8 % (11.5-14.5); WHITE BLOOD COUNT 10.6 X10'3 (4.5-11.0)
[2021-11-27] MEDS: ipratropium/albuterol 3ml nebule NEB SCH ×4 (02:57→14:45)
[2021-11-27 03:00] LABS: APTT 30 SECONDS (22-32)
[2021-11-27 03:08] LABS: ALANINE AMINOTRANSFERASE 474 U/L (12-78); ALBUMIN 1.9 G/DL (3.4-5.0); ALBUMIN/GLOBULIN RATIO 0.5 (1.1-1.5); ALKALINE PHOSPHATASE 268 IU/L (46-116); ANION GAP 17 (8-16); ASPARTATE AMINO TRANSFERASE 306 U/L (10-37); BILIRUBIN,TOTAL 4.7 MG/DL (0.1-1.0); BLOOD UREA NITROGEN 113 MG/DL (7-18); BUN/CREATININE RATIO 31.5 (5.4-32.0); CALCIUM 7.4 MG/DL (8.5-10.1); CHLORIDE 114 MMOL/L (99-107); CREATININE 3.59 MG/DL (0.60-1.10); GLUCOSE 163 MG/DL (70-104); MAGNESIUM 3.1 MG/DL (1.5-2.4); POTASSIUM 5.3 MMOL/L (3.5-5.1); SODIUM 149 MMOL/L (135-145); TOTAL CARBON DIOXIDE 17.9 MMOL/L (24-32); TOTAL PROTEIN 5.8 G/DL (6.4-8.2); eGFR 17 ML/MIN
[2021-11-27] MEDS: acetaminophen 325mg/10.15ml oral unit dose solution CORPAK PRN (03:54)
[2021-11-27] MEDS: normal saline 1000ml 1,000 ML IV SCH ×2 (03:55→15:26)
[2021-11-27 04:03] LABS: ANISOCYTOSIS 2+; PLATELET ESTIMATE DECREASED
[2021-11-27 04:05] LABS: POLYCHROMASIA FEW
[2021-11-27] MEDS ORDERED: vasopressin inj. 40 UNIT in normal saline 50ml IV soln 38 ML IV SCH (04:45)
[2021-11-27] MEDS ORDERED: dextrose 50%-water 50ml dispensing syringe IV ONE (05:00)
[2021-11-27] MEDS ORDERED: insulin regular, human 10 units/0.1 ml syringe IV ONE (05:00)
[2021-11-27] MEDS: CALCIUM GLUC 1gm/50ml NACL,iso 50 ML IV SCH ×2 (05:19→07:01)
--- NOTE | 2021-11-27 06:14 | NUR ---
Problems reprioritized. Patient report given, questions answered & plan of care reviewed with JACKY Samuels.
[2021-11-27] MEDS: budesonide 0.5mg/2ml UD nebule IH SCH (07:25)
[2021-11-27] MEDS ORDERED: cefepime 2g/NS 100ml ADVANTAGE 100 ML IV SCH (08:00)
[2021-11-27] MEDS ORDERED: fluconazole-Diflucan 100MG/NS 50 ML IV SCH (08:00)
[2021-11-27] MEDS: carVEDilol 12.5mg tablet CORPAK SCH (08:00)
[2021-11-27] MEDS ORDERED: lansoprazole 15mg solutab OGT SCH (08:00)
[2021-11-27] MEDS: docusate sodium 100mg/10ml UD cup CORPAK SCH (08:15)
[2021-11-27] MEDS: methylPREDNISolone sod succ 125mg/2ml vial IV SCH (08:15)
[2021-11-27] MEDS: oxybutynin 5mg tablet OGT SCH (08:15)
[2021-11-27] MEDS: pantoprazole 40MG/NS 100ML BAG 100 ML IV SCH (08:16)
[2021-11-27] MEDS: K and/or MAG REPLACEMENT MC SCH (08:20)
[2021-11-27] MEDS: heparin, porcine 5000 units/ml vial SQ SCH (08:21)
--- NOTE | 2021-11-27 09:57 | NUR ---
Family Patient in room ICU 2039. I have received report from Devi RICO at 0630 and had the opportunity to ask questions and assume patient care. Daughter to see pt. Explained changes in BP management as well as little to no UO. She seems to be coping well with that new information and is communicating that to family and friends. States pt son, her brother, should be here later today. He's flying from [place] this morning.
[2021-11-27] MEDS ORDERED: amiodarone 200mg tablet PO SCH (10:57)
--- NOTE | 2021-11-27 15:03 | NUR ---
PRESSURE ULCER EDUCATION: DEFINITION: A pressure ulcer is an area of skin that breaks down when you stay in one position too long. The constant pressure against the skin reduces the blood flow to that area and the affected tissue dies. CAUSES: "Being bedridden or in a wheelchair "Fragile skin "Having a chronic condition, such as diabetes or vascular disease "Inability to move certain parts of your body without assistance "Older age "Incontinence of urine or stool SYMPTOMS: "A reddened area that DOES NOT turn white when pressed on - this can be the beginning of a pressure ulcer "A blister, deep sore or a crater - these can be advanced pressure ulcers FIRST AID: "Relieve the pressure on this area "Keep the area clean and dry "Call your primary doctor if you see any of the above symptoms "DO NOT massage the area "DO NOT use a donut shaped or ring shaped pillow- these actually interfere with the blood flow and cause complications PREVENTION: "Check for pressure ulcers everyday "Change position at least every two hours to relieve pressure "Use items that help relieve pressure- pillows, sheepskin, foam padding, and powders. "Keep skin clean and dry "Eat healthy well balanced meals "Exercise daily IF YOU SEE ANY OF THESE SYMPTOMS WHILE IN THE HOSPITAL - TELL YOUR NURSE IMMEDIATELY. IF YOU SEE ANY OF THESE SYMPTOMS WHILE AT HOME OR HAVE ANY QUESTIONS OR CONCERNS ABOUT PRESSURE ULCERS - CALL YOUR PRIMARY DOCTOR IMMEDIATELY. Addendum: 11/27/21 at 1504 by Richelle Shelley LVN Amended: Links added.
--- NOTE | 2021-11-27 16:34 | NUR ---
Family. Brother arrived about 1515. Sister explained pts condition and current plan. Questions answered as needed and options clarified. Conversation revolved around comfort care with the goal of family being at bedside when he passes away. They both appear to be in agreement that is the best option. Pts sister is in transit and their hope is that she makes it here before he passes. That said, they want family by his side if he passes sooner. Pts children agreed to now escalate care at this point, maintaining current care. Notified MD and CN of current status.
[2021-11-27] MEDS ORDERED: morphine 10mg/ml inj. IV PRN (16:55)
[2021-11-27] MEDS ORDERED: LORazepam 2 mg/ml vial IV PRN (16:55)
[2021-11-27] MEDS ORDERED: acetaminophen 325mg tablet PO PRN (16:55)
--- NOTE | 2021-11-27 17:00 | NUR ---
MD Visit Pts children asked to see MD for discussion of comfort measures. MD explained questions and agreed to write those orders as well as answered fam. questions.
--- NOTE | 2021-11-27 17:37 | NUR ---
RN IS TO DOCUMENT YES TO ALL APPLICABLE AREAS Pronouncement of : 1. Time Physician Notified: 2. Date of : 11/27/21 3. Time of : 1739 4. DNR/Withdraw life support documented: Yes 5. Monitor strip has been placed on chart: Yes 6. Assessment process is of one-minute duration and includes following criteria: a) Patient is unresponsive to all stimuli: Yes b) Pupils fixed and non-reactive: Yes c) Auscultation of precordium reveals absence of heart tones: Yes d) Auscultation of lungs reveals absence of breath sounds: Yes e) Absence of blood pressure / all vital signs: Yes f) QRS complexes are not present on monitor / EKG strip: Yes g) Pacer spikes without capture: N/A 4. Comments: Daughter and son at bedside. After 2 mg MS and 2 of ativan, Vasopressors were discontinued as well as CPAP. Pt without s/s of distress.
--- NOTE | 2021-11-27 18:29 | NUR ---
Shift note: Pt passed, notified, [facility] called. chapel identified and noted on exp memorandum. Reported off to Sharron RICO for care of pt.
== END 2021-11-27 19:26 | DRG 871 ==
LOC: ER 20:54 → ED HOLD 23:50 → PCU 3S 11-24 09:18 → ICU 2S 11-24 10:46
PROVIDERS: ADMIT Family Medicine; ATTEND Family Medicine
PROC: 0DH68UZ Insertion of Feeding Device into Stomach, Via Natural or Artificial Opening Endoscopic (ICD-10-PCS; principal; 2021-11-26)
PROC: 5A09357 Assistance with Respiratory Ventilation, Less than 24 Consecutive Hours, Continuous Positive Airway Pressure (ICD-10-PCS; 2021-11-26)
DX: A41.9 Sepsis, unspecified organism (principal); I50.23 Acute on chronic systolic (congestive) heart failure; J96.21 Acute and chronic respiratory failure with hypoxia; R65.21 Severe sepsis with septic shock; E87.0 Hyperosmolality and hypernatremia; N17.9 Acute kidney failure, unspecified; K92.2 Gastrointestinal hemorrhage, unspecified; I13.0 Hypertensive heart and chronic kidney disease with heart failure and stage 1 through stage 4 chronic kidney disease, or unspecified chronic kidney disease; B37.81 Candidal esophagitis; C22.0 Liver cell carcinoma; E87.2 Acidosis; M62.82 Rhabdomyolysis; D68.9 Coagulation defect, unspecified; E78.5 Hyperlipidemia, unspecified; N18.9 Chronic kidney disease, unspecified; G89.4 Chronic pain syndrome; I49.3 Ventricular premature depolarization; Z66 Do not resuscitate; B18.2 Chronic viral hepatitis C; I25.10 Atherosclerotic heart disease of native coronary artery without angina pectoris; I48.91 Unspecified atrial fibrillation; F12.10 Cannabis abuse, uncomplicated; M54.50 Low back pain, unspecified; W18.39XA Other fall on same level, initial encounter; R13.10 Dysphagia, unspecified; R82.4 Acetonuria; K22.89 Other specified disease of esophagus; E87.6 Hypokalemia; J43.9 Emphysema, unspecified; R62.7 Adult failure to thrive; R74.01 Elevation of levels of liver transaminase levels; E86.1 Hypovolemia; K44.9 Diaphragmatic hernia without obstruction or gangrene; E80.6 Other disorders of bilirubin metabolism; B96.5 Pseudomonas (aeruginosa) (mallei) (pseudomallei) as the cause of diseases classified elsewhere; E87.5 Hyperkalemia; F11.90 Opioid use, unspecified, uncomplicated; K72.90 Hepatic failure, unspecified without coma; N40.0 Benign prostatic hyperplasia without lower urinary tract symptoms; I27.20 Pulmonary hypertension, unspecified; F32.A Depression, unspecified; S51.011A Laceration without foreign body of right elbow, initial encounter; Z79.899 Other long term (current) drug therapy; Z86.73 Personal history of transient ischemic attack (TIA), and cerebral infarction without residual deficits; Z87.891 Personal history of nicotine dependence; Z95.1 Presence of aortocoronary bypass graft; Y93.89 Activity, other specified; Y92.098 Other place in other non-institutional residence as the place of occurrence of the external cause; Y99.8 Other external cause status; Z99.81 Dependence on supplemental oxygen; Z68.38 Body mass index [BMI] 38.0-38.9, adult
CPT/HCPCS: 36415; 43235; 71045; 71270; 74018; 74176; 80053; 80061; 80305; 80320; 81001; 82140; 82272; 82378; 82550; 82553; 82570; 82948; 83036; 83605; 83690; 83735; 83874; 83880; 84100; 84133; 84145; 84156; 84300; 84484; 85007; 85008; 85025; 85379; 85610; 85730; 86301; 86703; 86704; 86705; 86706; 86709; 86803; 86885; 86900; 86901; 87040; 87077; 87186; 87340; 92508; 92616; 93005; 93306; 93970; 94640; 94660; 94760; 94799; 96365; 97161; 97530; 99152; 99285; C9113; G0378; J0282; J0610; J0692; J0696; J1265; J1450; J1644; J1815; J1940; J1956; J2060; J2250; J2270; J2274; J2930; J3010; J3430; J3475; J3480; J3490; J7030; J7042; J7050; P9045; P9047